=== PATIENT | male | born 1940 | race Caucasian/White ===

== ENCOUNTER 2021-05-07 05:49 | Inpatient (IN) ==
[2021-05-07] MEDS ORDERED: ONDANSETRON 4 MG/2 ML VIAL IV STA (06:13)
[2021-05-07] MEDS ORDERED: PANTOPRAZOLE 40 MG VIAL IV STA (06:13)
[2021-05-07] MEDS ORDERED: PIPERACILLIN/TAZOBACTAM 3,375 MG in SODIUM CHLORIDE 0.9% 100 ML IV STA (06:13)
[2021-05-07] MEDS ORDERED: SODIUM CHLORIDE 0.9% 2,000 ML IV STA (06:13)
[2021-05-07 06:41] LABS: Basophils # 0.1 10*3/uL (0.0-0.2); Basophils % 0.2 % (0.0-0.8); Eosinophils # 0.2 10*3/uL (0.0-0.87); Eosinophils % 0.8 % (0.00-10.9); Hematocrit 49.5 VOL% (42.0-52.0); Hemoglobin 15.6 GM/DL (14.0-18.0); Immature Granulocytes Absolute 0.22 #; Lymphocytes # 2.9 10*3/uL (1.4-4.0); Mean Corpuscular HGB Conc 31.5 GM/DL (32-36); Mean Corpuscular Volume 89.7 FL (87-102); Mean Platelet Volume 10.4 FL (9.6-12.0); Monocytes % 0.8 % (1.7-12.7); Neutrophils % 84.2 % (38.7-73.9); Platelet Count 369 T/CUMM (130-400); Red Blood Count 5.52 MC/CUMM (3.8-5.5); Red Cell Distribution Width 13.7 % (9.3-17.3); White Blood Count 22.2 T/CUMM (4-12)
[2021-05-07] MEDS ORDERED: VANCOMYCIN INJ 1,250 MG in SODIUM CHLORIDE 0.9% 250 ML IV STA (07:00)
[2021-05-07] MEDS ORDERED: NOREPINEPHRINE 4 MG/4 ML VIAL IV ONE ×3 (07:03→12:58)
[2021-05-07 07:04] LABS: Alanine Aminotransferase 51 U/L (16-61); Albumin 3.1 G/DL (3.4-5.0); Alkaline Phosphatase 125 U/L (45-117); Aspartate Amino Transferase 66 U/L (0-37); Blood Urea Nitrogen 31 MG/DL (7-18); Calcium 9.3 MG/DL (8.5-10.1); Carbon Dioxide 24 MMOL/L (21-32); Estimated Glom Filtration Rate 27 ML/MIN; Glucose 271 MG/DL (74-106); Potassium 3.6 MMOL/L (3.5-5.1); Sodium 143 MMOL/L (136-145); Total Protein 7.5 G/DL (6.4-8.2)
[2021-05-07 07:06] LABS: Atypical Lymphocytes Few; Band Neutrophils 10 % (0-10); Eosinophils 2 % (0-10); Lymphocytes 12 % (20-55); Segmented Neutrophils 74 % (50-85); Total Cells Counted 100
[2021-05-07 07:07] LABS: Hypochromasia 1+; Microcytosis 1+; Ovalocytes Slight; Platelet Estimate Normal
[2021-05-07] MEDS: NOREPINEPHRINE 8 MG in SODIUM CHLORIDE 0.9% 242 ML IV PRN ×3 (07:23→21:50)
[2021-05-07] MEDS ORDERED: ALBUTEROL 2.5 MG/3 ML NEB RESP TX PRN (07:37)
[2021-05-07] MEDS ORDERED: PROMETHAZINE 25 MG/1 ML VIAL IM PRN (07:37)
[2021-05-07] MEDS ORDERED: ONDANSETRON 4 MG/2 ML VIAL IV PRN (07:37)
[2021-05-07] MEDS ORDERED: HYDROmorphone 2 MG/1 ML VIAL IV STA (07:50)
[2021-05-07] MEDS ORDERED: HYDROmorphone 2 MG/1 ML VIAL ONE (07:51)
[2021-05-07] MEDS ORDERED: cefTRIAXone 500 MG VIAL ONE (07:59)
[2021-05-07] MEDS ORDERED: ENOXAPARIN 40 MG/0.4 ML SYRINGE ONE (08:00)
[2021-05-07 08:01] LABS: Bacteria,Urine Occasional /HPF (Few); Bilirubin,Urine Negative (Negative); Blood, Urine Moderate mg/dL (Negative); Glucose,Urine (UA) Negative (Negative); Ketones,Urine Negative (Negative); Mucus,Urine Occasional /LPF (Occasional); Nitrite,Urine Negative (Negative); Protein,Urine Negative; RBC,Urine 76 /HPF (0-4); Squamous Epithelial Cell,Urine Occasional /HPF (0-10); Urine Appearance CLOUDY (Clear); Urine Color Yellow (Yellow); Urine Specific Gravity 1.015 (1.001-1.035); Urine Urobilinogen < 2.0 EU/DL (0.2-1.0)
[2021-05-07] MEDS: ENOXAPARIN 30 MG/0.3 ML SYRINGE SUBCUT SCH (08:06)
[2021-05-07] MEDS: SODIUM CHLORIDE 0.9% 1,000 ML IV SCH ×3 (08:09→20:46)
[2021-05-07] MEDS: FAMOTIDINE 20 MG/2 ML VIAL IV SCH ×2 (08:11→21:48)
[2021-05-07] MEDS ORDERED: BISACODYL 10 MG SUPP RECTAL ONE (09:10)
[2021-05-07 11:38] LABS: Immunoglobulin A 462 MG/DL (70-400); Immunoglobulin G 1310 MG/DL (700-1600); Immunoglobulin M 47 MG/DL (40-230)
[2021-05-07] MEDS ORDERED: SODIUM CHLORIDE 0.9% 1,000 ML IV STA (13:58)
[2021-05-07] MEDS: TAMSULOSIN 0.4 MG CAPSULE PO SCH (14:20)
[2021-05-07] MEDS: HYDROmorphone 2 MG/1 ML VIAL IV PRN (15:52)
[2021-05-07] MEDS ORDERED: VANCOMYCIN INJ 1,750 MG in SODIUM CHLORIDE 0.9% 500 ML IV ONE (17:00)
[2021-05-07 20:01] LABS: Cancer Antigen 19-9 2.53 U/ML (0-35); Carcinoembryonic Antigen 30.1 NG/ML (0.0-5.0)
[2021-05-07] MEDS: FINASTERIDE 5 MG TABLET PO SCH (21:48)
[2021-05-08] MEDS: HYDROmorphone 2 MG/1 ML VIAL IV PRN ×3 (04:43→20:38)
[2021-05-08] MEDS: SODIUM CHLORIDE 0.9% 1,000 ML IV SCH (05:05)
[2021-05-08 05:10] LABS: Basophils # 0.1 10*3/uL (0.0-0.2); Basophils % 0.2 % (0.0-0.8); Eosinophils # 0.1 10*3/uL (0.0-0.87); Eosinophils % 0.6 % (0.00-10.9); Immature Granulocytes Absolute 0.23 #; Lymphocytes # 1.7 10*3/uL (1.4-4.0); Lymphocytes % 7.6 % (21.2-54.2); Mean Corpuscular HGB Conc 31.7 GM/DL (32-36); Mean Corpuscular Volume 90.4 FL (87-102); Mean Platelet Volume 10.8 FL (9.6-12.0); Monocytes % 8.9 % (1.7-12.7); Neutrophils % 81.7 % (38.7-73.9); Red Cell Distribution Width 14.2 % (9.3-17.3); White Blood Count 22.7 T/CUMM (4-12)
[2021-05-08 05:13] LABS: Hemoglobin 11.1 GM/DL (14.0-18.0); Platelet Count 212 T/CUMM (130-400); Red Blood Count 3.87 MC/CUMM (3.8-5.5)
[2021-05-08 05:23] LABS: INR 1.2; PT Patient Result 13.3 SECS (10.5-12.0)
[2021-05-08 05:30] LABS: Band Neutrophils 11 % (0-10); Eosinophils 1 % (0-10); Lymphocytes 10 % (20-55); Segmented Neutrophils 72 % (50-85); Total Cells Counted 100
[2021-05-08 05:31] LABS: Albumin 2.1 G/DL (3.4-5.0); Bilirubin,Total 0.7 MG/DL (0.20-1.00); Hypochromasia 1+; Microcytosis 1+; Osmolality,Calculated 301.7 MOS/KG (273-304); Ovalocytes Slight; Potassium 5.1 MMOL/L (3.5-5.1); Thyroid Stimulating Hormone 4.14 uIU/ml (0.358-3.74); Total Protein 5.5 G/DL (6.4-8.2)
[2021-05-08 05:32] LABS: Platelet Estimate Normal
[2021-05-08] MEDS ORDERED: cefTRIAXone 250 MG in SODIUM CHLORIDE 0.9% 100 ML IV SCH (08:00)
[2021-05-08] MEDS ORDERED: ACETAMINOPHEN 325 MG TABLET PO PRN (09:01)
[2021-05-08] MEDS: cefTRIAXone 1,000 MG in SODIUM CHLORIDE 0.9% 100 ML IV SCH (09:44)
[2021-05-08] MEDS: ENOXAPARIN 30 MG/0.3 ML SYRINGE SUBCUT SCH (09:45)
[2021-05-08] MEDS: ASPIRIN CHEW 81 MG TABLET PO SCH (09:45)
[2021-05-08] MEDS: LEVOTHYROXINE 50 MCG TABLET PO SCH (09:45)
[2021-05-08] MEDS: FAMOTIDINE 20 MG/2 ML VIAL IV SCH (09:45)
[2021-05-08] MEDS: TAMSULOSIN 0.4 MG CAPSULE PO SCH (09:46)
[2021-05-08] MEDS ORDERED: LACTATED RINGERS 1,000 ML IV SCH (10:30)
[2021-05-08] MEDS ORDERED: DEXTROSE 50% 25 GM/50 ML VIAL IV PRN (10:36)
[2021-05-08] MEDS ORDERED: GLUCAGON 1 MG VIAL IM PRN (10:36)
[2021-05-08] MEDS ORDERED: METOPROLOL TARTRATE 5 MG/5 ML VIAL IV ONE ×3 (13:35→23:05)
[2021-05-08] MEDS ORDERED: ALUM/MAG/SIMETH/LIDO VISC 1:1 30 ML BOTTLE PO ONE (13:50)
[2021-05-08] MEDS: SODIUM CHLORIDE 0.45% 1,000 ML IV SCH ×3 (13:55→21:28)
[2021-05-08] MEDS: INSULIN REGULAR 100 UNIT/ML SUBCUT SCH ×3 (14:00→20:53)
[2021-05-08] MEDS: PANTOPRAZOLE 40 MG TABLET PO SCH (14:16)
[2021-05-08] MEDS ORDERED: SODIUM CHLORIDE 0.45% 500 ML IV ONE (16:32)
[2021-05-08 17:47] LABS: Albumin 2.2 G/DL (3.4-5.0); Bilirubin,Total 0.8 MG/DL (0.20-1.00); Calcium 7.3 MG/DL (8.5-10.1); Osmolality,Calculated 298.8 MOS/KG (273-304); Potassium 5.3 MMOL/L (3.5-5.1)
[2021-05-08] MEDS: SUCRALFATE 1 GM/10 ML UDCUP PO SCH ×2 (17:49→20:12)
[2021-05-08] MEDS ORDERED: METOPROLOL TARTRATE 25 MG TABLET PO ONE (18:54)
[2021-05-08] MEDS: METOPROLOL TARTRATE 25 MG TABLET PO SCH (20:02)
[2021-05-08] MEDS: DOCUSATE SODIUM 100 MG CAPSULE PO SCH (20:12)
[2021-05-08] MEDS: APIXABAN 5 MG TABLET PO SCH (20:12)
[2021-05-08] MEDS: POLYETHYLENE GLYCOL POWDER 17 GM PACK PO SCH (20:12)
[2021-05-08] MEDS: FINASTERIDE 5 MG TABLET PO SCH (20:12)
[2021-05-08] MEDS ORDERED: SIMVASTATIN 40 MG TABLET PO SCH (21:00)
[2021-05-09] MEDS: HYDROmorphone 2 MG/1 ML VIAL IV PRN ×2 (00:38→13:12)
[2021-05-09 04:57] LABS: Basophils % 0.2 % (0.0-0.8); Hematocrit 33.3 VOL% (42.0-52.0); Hemoglobin 10.2 GM/DL (14.0-18.0); Immature Granulocytes % 1.3 %; Immature Granulocytes Absolute 0.21 #; Lymphocytes # 1.9 10*3/uL (1.4-4.0); Lymphocytes % 11.6 % (21.2-54.2); Mean Corpuscular HGB Conc 30.6 GM/DL (32-36); Mean Corpuscular Volume 91.5 FL (87-102); Mean Platelet Volume 10.7 FL (9.6-12.0); Monocytes % 9.7 % (1.7-12.7); Neutrophils % 77.2 % (38.7-73.9); Platelet Count 195 T/CUMM (130-400); Red Blood Count 3.64 MC/CUMM (3.8-5.5); Red Cell Distribution Width 14.7 % (9.3-17.3); White Blood Count 16.1 T/CUMM (4-12)
[2021-05-09 05:15] LABS: Calcium 7.3 MG/DL (8.5-10.1); Osmolality,Calculated 294.3 MOS/KG (273-304); Potassium 5.1 MMOL/L (3.5-5.1)
[2021-05-09] MEDS: SODIUM CHLORIDE 0.45% 1,000 ML IV SCH ×4 (05:57→22:39)
[2021-05-09 06:02] LABS: Band Neutrophils 14 % (0-10); Lymphocytes 13 % (20-55); Metamyelocytes 4 %; Myelocytes 1 %; Segmented Neutrophils 57 % (50-85); Total Cells Counted 100
[2021-05-09 06:03] LABS: Hypochromasia Slight; Platelet Estimate Normal
[2021-05-09 06:04] LABS: Reactive Lymphocytes Few
[2021-05-09] MEDS: ASPIRIN CHEW 81 MG TABLET PO SCH (08:01)
[2021-05-09] MEDS: PANTOPRAZOLE 40 MG TABLET PO SCH (08:01)
[2021-05-09] MEDS: TAMSULOSIN 0.4 MG CAPSULE PO SCH (08:01)
[2021-05-09] MEDS: METOPROLOL TARTRATE 25 MG TABLET PO SCH (08:01)
[2021-05-09] MEDS: APIXABAN 5 MG TABLET PO SCH ×2 (08:01→21:35)
[2021-05-09] MEDS: SUCRALFATE 1 GM/10 ML UDCUP PO SCH ×4 (08:01→21:35)
[2021-05-09] MEDS: LEVOTHYROXINE 50 MCG TABLET PO SCH (08:01)
[2021-05-09] MEDS: DOCUSATE SODIUM 100 MG CAPSULE PO SCH ×2 (08:01→22:15)
[2021-05-09 08:08] LABS: Total Protein (Chem) 7.7 G/DL (6.4-8.3)
[2021-05-09] MEDS: cefTRIAXone 1,000 MG in SODIUM CHLORIDE 0.9% 100 ML IV SCH (08:12)
[2021-05-09] MEDS: INSULIN REGULAR 100 UNIT/ML SUBCUT SCH ×4 (08:12→21:41)
[2021-05-09] MEDS: POLYETHYLENE GLYCOL POWDER 17 GM PACK PO SCH ×2 (08:12→21:34)
[2021-05-09] MEDS: LINACLOTIDE 145 MCG CAPSULE PO SCH (08:30)
[2021-05-09] MEDS ORDERED: FAMOTIDINE 20 MG TABLET PO SCH (09:00)
[2021-05-09 09:06] LABS: Albumin (SPE) 4.2 G/DL (3.2-5.3); Albumin (SPE) Rel % 53.9 %; Alpha 1 (SPE) 0.2 G/DL (0.1-0.4); Alpha 1 (SPE) Rel % 2.3 %; Alpha 2 (SPE) 0.9 G/DL (0.4-1.0); Alpha 2 (SPE) Rel % 11.5 %; Beta (SPE) Rel % 13.5 %; Gamma (SPE) 1.4 G/DL (0.7-1.7); Gamma (SPE) Rel % 18.8 %
[2021-05-09 09:50] LABS: Immunoglobulin A (Chem) 462 MG/DL (70-400); Immunoglobulin G (Chem) 1310 MG/DL (700-1600); Immunoglobulin M (Chem) 47 MG/DL (40-230)
[2021-05-09] MEDS ORDERED: METOPROLOL TARTRATE 25 MG TABLET PO SCH (15:00)
[2021-05-09] MEDS ORDERED: LUBIPROSTONE 8 MCG CAPSULE PO SCH (21:00)
[2021-05-09] MEDS ORDERED: SENNA 8.6 MG TABLET PO SCH (21:00)
[2021-05-09] MEDS: FINASTERIDE 5 MG TABLET PO SCH (21:35)
[2021-05-09] MEDS: ALVIMOPAN 12 MG CAPSULE PO SCH (22:14)
[2021-05-09] MEDS: METOPROLOL TARTRATE 100 MG TABLET PO SCH (22:15)
[2021-05-10] MEDS: SODIUM CHLORIDE 0.45% 1,000 ML IV SCH (05:39)
[2021-05-10] MEDS: INSULIN REGULAR 100 UNIT/ML SUBCUT SCH (08:23)
[2021-05-10 08:50] LABS: Immuno Free Light Chain Kappa 14.92 MG/DL (0.33-1.94); Immuno Free Light Chain Lambda 5.56 MG/DL (0.57-2.63); Immuno Free Light Chain Ratio 2.68 MG/DL (0.26-1.65)
[2021-05-10] MEDS: LINACLOTIDE 145 MCG CAPSULE PO SCH (09:00)
[2021-05-10] MEDS: TAMSULOSIN 0.4 MG CAPSULE PO SCH (09:01)
[2021-05-10] MEDS: ALVIMOPAN 12 MG CAPSULE PO SCH (09:01)
[2021-05-10] MEDS: SUCRALFATE 1 GM/10 ML UDCUP PO SCH ×2 (09:01→12:26)
[2021-05-10] MEDS: ASPIRIN CHEW 81 MG TABLET PO SCH (09:01)
[2021-05-10] MEDS: PANTOPRAZOLE 40 MG TABLET PO SCH (09:01)
[2021-05-10] MEDS: APIXABAN 5 MG TABLET PO SCH (09:01)
[2021-05-10] MEDS: LEVOTHYROXINE 50 MCG TABLET PO SCH (09:01)
[2021-05-10] MEDS: METOPROLOL TARTRATE 100 MG TABLET PO SCH (09:01)
[2021-05-10] MEDS: cefTRIAXone 1,000 MG in SODIUM CHLORIDE 0.9% 100 ML IV SCH (09:01)
[2021-05-10] MEDS: DOCUSATE SODIUM 100 MG CAPSULE PO SCH (11:37)
[2021-05-10] MEDS: POLYETHYLENE GLYCOL POWDER 17 GM PACK PO SCH (11:37)
[2021-05-10] MEDS ORDERED: amLODIPine 5 MG TABLET PO SCH (12:00)
[2021-05-10 12:46] VITALS: BP 143/78
[2021-05-11] MEDS ORDERED: LEVOFLOXACIN 250 MG TABLET PO SCH (09:00)
== END 2021-05-10 13:49 | disposition home or self-care (01) | DRG 871 ==
LOC: N.ED 05:49 → N.EDINP 07:37 → SUATTDRO 07:37 → N.ICU 18:27 → N.4E 05-09 11:20
PROVIDERS: ADMIT Internal Medicine; ATTEND Hospitalist